=== PATIENT | male | born 1985 | race Two or more races ===

== ENCOUNTER → 2017-08-13 | Outpatient (REF) | payer OTHER ==
[2017-08-13 14:34] LABS: APPEARANCE, URINE HAZY (CLEAR); BACTERIA, URINE AUTO NEGATIVE (NEGATIVE); BILIRUBIN, URINE AUTO NEGATIVE (NEGATIVE); BLOOD, URINE BLOOD NEGATIVE (NEGATIVE); COLOR, URINE YELLOW (YELLOW); GLUCOSE, URINE (UA) AUTO NEGATIVE (NEGATIVE); KETONE, URINE AUTO 1+ mg/dL (NEGATIVE); LEUKOCYTE ESTERASE, URINE AUTO NEGATIVE (NEGATIVE); MUCUS, URINE SMALL (NEGATIVE); NITRITE, URINE AUTO NEGATIVE (NEGATIVE); PROTEIN, URINE AUTO NEGATIVE (NEGATIVE); RBC, URINE AUTO 1 /HPF (0-3); SPECIFIC GRAVITY URINE AUTO 1.028 (1.002-1.035); SQUAMOUS EPITHELIAL CELL UR AU 0 /HPF (0-6); UROBILINOGEN, URINE AUTO 0.2 mg/dL (0.0-2.0); WBC, URINE AUTO 0 /HPF (0-3)
== END ==
LOC: M SMT 13:06
DX: N28.89 Other specified disorders of kidney and ureter (principal)
CPT/HCPCS: 81001

== ENCOUNTER 2017-09-05 05:53 | Inpatient (IN) | payer OTHER ==
[2017-09-05] MEDS: LR 1,000 ML IV ×3 (06:33→12:45)
[2017-09-05] MEDS ORDERED: LIDOCAINE 2% INJ 100 MG/5 ML SDV (FOR ANES.) As Ordered (07:06)
[2017-09-05] MEDS ORDERED: KETOROLAC 60 MG/2 ML VIAL (J1885) As Ordered (07:06)
[2017-09-05] MEDS ORDERED: GLYCOPYRROLATE INJ 0.2 MG/ML 2 ML VIAL As Ordered (07:06)
[2017-09-05] MEDS ORDERED: ONDANSETRON 4MG/2ML VIAL (J2405) As Ordered (07:06)
[2017-09-05] MEDS ORDERED: dexameTHASONE 4 MG/ML 1ML VIAL (J1100) As Ordered (07:06)
[2017-09-05] MEDS ORDERED: PROPOFOL 200 MG/20 ML VIAL As Ordered (07:06)
[2017-09-05] MEDS ORDERED: NEOSTIGMINE 10 MG/10 ML VIAL (J2710) As Ordered (07:06)
[2017-09-05] MEDS ORDERED: ROCURONIUM BROMIDE 50 MG/5 ML VIAL As Ordered (07:06)
[2017-09-05] MEDS ORDERED: MIDAZOLAM INJ 2 MG/2 ML VIAL (J2250) As Ordered (07:08)
[2017-09-05] MEDS ORDERED: HYDROmorphone HCL 2 MG/ML 1ML VIAL (J1170) As Ordered (07:08)
[2017-09-05] MEDS ORDERED: fentaNYL 100 MCG/2 ML INJECTION (J3010) As Ordered ×2 (07:08→12:37)
[2017-09-05] MEDS ORDERED: PERCOCET 5MG/325MG TAB PO (07:30)
[2017-09-05] MEDS: LIDOCAINE 1% SDV INJ 30 ML VIAL As Ordered (08:15)
[2017-09-05] MEDS: BUPIVACAINE HCL 0.25% 30 ML VIAL As Ordered (08:15)
[2017-09-05] MEDS: DOCUSATE SODIUM 100 MG CAP PO ×2 (09:00→20:43)
[2017-09-05] MEDS: MANNITOL 25% 12.5 GM/50 ML VIAL (J2150) As Ordered (10:10)
[2017-09-05] MEDS ORDERED: NORCO, ANEXSIA 5/325MG TABLET (HYDROcodone/ACETAMINOPHEN) As Ordered (12:37)
[2017-09-05] MEDS: fentaNYL 100 MCG/2 ML INJECTION (J3010) IV ×4 (12:40→12:55)
[2017-09-05] MEDS ORDERED: ONDANSETRON 4MG/2ML VIAL (J2405) IV (12:45)
[2017-09-05 12:47] LABS: HEMATOCRIT 41.3 % (42.0-52.0); HEMOGLOBIN 14.2 g/dl (14.0-18.0); MEAN CORPUSCULAR HEMOGLOBIN 30.1 pg (27.0-33.0); MEAN CORPUSCULAR HGB CONC 34.4 g/dl (32.0-36.5); MEAN CORPUSCULAR VOLUME 87.5 fl (80.0-96.0); PLATELET COUNT, AUTOMATED 202 10^3/uL (150-450); RED BLOOD COUNT 4.72 10^6/uL (4.30-6.10); RED CELL DISTRIBUTION WIDTH 11.5 % (11.5-14.5); WHITE BLOOD COUNT 8.8 10^3/uL (4.0-10.0)
[2017-09-05] MEDS: NORCO, ANEXSIA 5/325MG TABLET (HYDROcodone/ACETAMINOPHEN) PO (12:53)
[2017-09-05] MEDS ORDERED: HYDROmorphone HCL 1 MG/ML SYRINGE (J1170) As Ordered (13:10)
[2017-09-05] MEDS: HYDROmorphone HCL 1 MG/ML SYRINGE (J1170) IV ×2 (13:13→13:18)
[2017-09-05 13:27] LABS: ANION GAP 8 MEQ/L (8-16); BLOOD UREA NITROGEN 13 MG/DL (7-18); CALCIUM LEVEL 8.6 MG/DL (8.5-10.1); CARBON DIOXIDE LEVEL 27 MEQ/L (21-32); CHLORIDE LEVEL 105 MEQ/L (98-107); CREATININE FOR GFR 1.16 MG/DL (0.70-1.30); GLOMERULAR FILTRATION RATE > 60.0 (>60); GLUCOSE, FASTING 122 MG/DL (70-100); POTASSIUM SERUM 4.2 MEQ/L (3.5-5.1); SODIUM LEVEL 140 MEQ/L (136-145)
[2017-09-05] MEDS: NS 1,000 ML IV ×3 (13:57→23:26)
[2017-09-05] MEDS: MORPHINE 4 MG/ML 1ML VIAL (J2270) IV ×5 (14:16→23:26)
[2017-09-05] MEDS: METHOCARBAMOL 750 MG TAB PO ×2 (14:47→18:56)
[2017-09-05] MEDS: CEFAZOLIN SOD 1 GM in APPROPRIATE DILUENT 1 EA IV (15:12)
[2017-09-05] MEDS: PERCOCET 5MG/325MG TAB PO (17:11)
[2017-09-05] MEDS: ONDANSETRON 4MG/2ML VIAL (J2405) IV (17:11)
[2017-09-05] MEDS: PREGABALIN 75 MG CAP(LYRICA) PO (21:07)
[2017-09-06] MEDS: CEFAZOLIN SOD 1 GM in APPROPRIATE DILUENT 1 EA IV (00:07)
[2017-09-06] MEDS: NORCO, ANEXSIA 5/325MG TABLET (HYDROcodone/ACETAMINOPHEN) PO ×6 (00:08→22:35)
[2017-09-06] MEDS: METHOCARBAMOL 750 MG TAB PO ×3 (00:56→11:48)
[2017-09-06] MEDS: MORPHINE 4 MG/ML 1ML VIAL (J2270) IV ×3 (01:40→06:07)
[2017-09-06 02:32] LABS: BEDSIDE GLUCOSE 87 MG/DL (70-105)
[2017-09-06] MEDS: LEVOTHYROXINE 125MCG TABLET (0.125MG) PO (06:06)
[2017-09-06 06:56] LABS: MEAN CORPUSCULAR HGB CONC 34.1 g/dl (32.0-36.5); MEAN CORPUSCULAR VOLUME 87.9 fl (80.0-96.0); PLATELET COUNT, AUTOMATED 153 10^3/uL (150-450); RED BLOOD COUNT 3.87 10^6/uL (4.30-6.10); RED CELL DISTRIBUTION WIDTH 11.7 % (11.5-14.5); WHITE BLOOD COUNT 7.4 10^3/uL (4.0-10.0)
[2017-09-06 07:10] LABS: HEMOGLOBIN 11.6 g/dl (14.0-18.0)
[2017-09-06] MEDS: NS 1,000 ML IV ×2 (07:21→20:05)
[2017-09-06 07:25] LABS: ANION GAP 8 MEQ/L (8-16); BLOOD UREA NITROGEN 9 MG/DL (7-18); CALCIUM LEVEL 7.7 MG/DL (8.5-10.1); CARBON DIOXIDE LEVEL 26 MEQ/L (21-32); CHLORIDE LEVEL 104 MEQ/L (98-107); CREATININE FOR GFR 1.29 MG/DL (0.70-1.30); GLOMERULAR FILTRATION RATE > 60.0 (>60); GLUCOSE, FASTING 86 MG/DL (70-100); POTASSIUM SERUM 3.5 MEQ/L (3.5-5.1); SODIUM LEVEL 138 MEQ/L (136-145)
[2017-09-06] MEDS: DOCUSATE SODIUM 100 MG CAP PO ×2 (09:06→20:04)
[2017-09-06] MEDS: PREGABALIN 75 MG CAP(LYRICA) PO ×2 (09:07→20:04)
[2017-09-06] MEDS ORDERED: NORCO, ANEXSIA 5/325MG TABLET (HYDROcodone/ACETAMINOPHEN) PO (10:30)
[2017-09-06 14:17] LABS: HEMATOCRIT 32.7 % (42.0-52.0); HEMOGLOBIN 11.3 g/dl (14.0-18.0); MEAN CORPUSCULAR HEMOGLOBIN 30.4 pg (27.0-33.0); MEAN CORPUSCULAR HGB CONC 34.6 g/dl (32.0-36.5); MEAN CORPUSCULAR VOLUME 87.9 fl (80.0-96.0); PLATELET COUNT, AUTOMATED 138 10^3/uL (150-450); RED BLOOD COUNT 3.72 10^6/uL (4.30-6.10); RED CELL DISTRIBUTION WIDTH 11.8 % (11.5-14.5); WHITE BLOOD COUNT 6.1 10^3/uL (4.0-10.0)
[2017-09-06] MEDS: MIRALAX *UNIT DOSE* 17GM PACKET PO (17:36)
[2017-09-06] MEDS: ONDANSETRON 4MG/2ML VIAL (J2405) IV (18:01)
[2017-09-06] MEDS: ACETAMINOPHEN TAB 650MG DOSE (2X325MG) PO (20:05)
[2017-09-07] MEDS: MORPHINE 4 MG/ML 1ML VIAL (J2270) IV (01:12)
[2017-09-07] MEDS: NORCO, ANEXSIA 5/325MG TABLET (HYDROcodone/ACETAMINOPHEN) PO ×2 (04:14→09:07)
[2017-09-07] MEDS: LEVOTHYROXINE 125MCG TABLET (0.125MG) PO (06:39)
[2017-09-07] MEDS: traMADol 50 MG TAB PO ×2 (06:39→22:25)
[2017-09-07 06:43] LABS: HEMATOCRIT 34.2 % (42.0-52.0); HEMOGLOBIN 11.8 g/dl (14.0-18.0); MEAN CORPUSCULAR HEMOGLOBIN 29.9 pg (27.0-33.0); MEAN CORPUSCULAR HGB CONC 34.5 g/dl (32.0-36.5); MEAN CORPUSCULAR VOLUME 86.6 fl (80.0-96.0); PLATELET COUNT, AUTOMATED 158 10^3/uL (150-450); RED BLOOD COUNT 3.95 10^6/uL (4.30-6.10); RED CELL DISTRIBUTION WIDTH 11.6 % (11.5-14.5); WHITE BLOOD COUNT 7.3 10^3/uL (4.0-10.0)
[2017-09-07 06:56] LABS: ANION GAP 7 MEQ/L (8-16); BLOOD UREA NITROGEN 6 MG/DL (7-18); CARBON DIOXIDE LEVEL 27 MEQ/L (21-32); CHLORIDE LEVEL 104 MEQ/L (98-107); CREATININE FOR GFR 1.04 MG/DL (0.70-1.30); GLOMERULAR FILTRATION RATE > 60.0 (>60); GLUCOSE, FASTING 111 MG/DL (70-100); POTASSIUM SERUM 3.9 MEQ/L (3.5-5.1); SODIUM LEVEL 138 MEQ/L (136-145)
[2017-09-07] MEDS: PREGABALIN 75 MG CAP(LYRICA) PO ×2 (09:00→20:11)
[2017-09-07] MEDS: DOCUSATE SODIUM 100 MG CAP PO ×2 (09:00→20:11)
[2017-09-07] MEDS: ONDANSETRON 4MG/2ML VIAL (J2405) IV (09:07)
[2017-09-07] MEDS: MIRALAX *UNIT DOSE* 17GM PACKET PO (09:07)
[2017-09-07] MEDS: NS 1,000 ML IV (10:57)
[2017-09-07] MEDS: ACETAMINOPHEN TAB 650MG DOSE (2X325MG) PO (18:12)
[2017-09-07] MEDS: ZOLMitriptan TABLET 2.5MG PO (20:12)
[2017-09-08] MEDS: traMADol 50 MG TAB PO ×3 (02:18→10:21)
[2017-09-08] MEDS: NS 1,000 ML IV (05:54)
[2017-09-08] MEDS: LEVOTHYROXINE 125MCG TABLET (0.125MG) PO (06:06)
[2017-09-08 06:30] LABS: HEMATOCRIT 34.6 % (42.0-52.0); MEAN CORPUSCULAR HEMOGLOBIN 29.6 pg (27.0-33.0); MEAN CORPUSCULAR HGB CONC 34.7 g/dl (32.0-36.5); MEAN CORPUSCULAR VOLUME 85.4 fl (80.0-96.0); PLATELET COUNT, AUTOMATED 161 10^3/uL (150-450); RED BLOOD COUNT 4.05 10^6/uL (4.30-6.10); RED CELL DISTRIBUTION WIDTH 11.4 % (11.5-14.5); WHITE BLOOD COUNT 6.4 10^3/uL (4.0-10.0)
[2017-09-08 07:00] LABS: ANION GAP 6 MEQ/L (8-16); BLOOD UREA NITROGEN 6 MG/DL (7-18); CALCIUM LEVEL 8.6 MG/DL (8.5-10.1); CARBON DIOXIDE LEVEL 31 MEQ/L (21-32); CHLORIDE LEVEL 103 MEQ/L (98-107); CREATININE FOR GFR 1.05 MG/DL (0.70-1.30); GLOMERULAR FILTRATION RATE > 60.0 (>60); GLUCOSE, FASTING 116 MG/DL (70-100); POTASSIUM SERUM 3.6 MEQ/L (3.5-5.1); SODIUM LEVEL 140 MEQ/L (136-145)
[2017-09-08] MEDS: PREGABALIN 75 MG CAP(LYRICA) PO (09:31)
[2017-09-08] MEDS: BISACODYL 10 MG SUPP PR (09:31)
[2017-09-08] MEDS: DOCUSATE SODIUM 100 MG CAP PO (09:32)
== END 2017-09-08 12:43 | disposition home or self-care (01) | DRG 657 ==
LOC: M OR 05:53 → M MSPAV 14:03
PROC: 0TB04ZZ Excision of Right Kidney, Percutaneous Endoscopic Approach (ICD-10-PCS; principal; 2017-09-05 07:30)
PROC: 8E0W4CZ Robotic Assisted Procedure of Trunk Region, Percutaneous Endoscopic Approach (ICD-10-PCS; 2017-09-05 07:30)
DX: D30.01 Benign neoplasm of right kidney (principal); K91.89 Other postprocedural complications and disorders of digestive system; K56.7 Ileus, unspecified; E03.9 Hypothyroidism, unspecified; G43.909 Migraine, unspecified, not intractable, without status migrainosus; Z79.899 Other long term (current) drug therapy

== ENCOUNTER 2019-07-24 19:35 | Emergency (ER) | payer OTHER ==
[~2019-07-24] VITALS: Ht 188 cm; Wt 86.4 kg
[~2019-07-24 19:35] MED LIST: ACET1TAB55 PO; LEVO125T4 PO; LYRI75CA PO; MIRA3350 PO; MM S100C PO; PRED10TA2 PO; ROBA750T4 PO; TIZA2CAP PO; ULTR50TA8 PO; VOLT1GEL15 TD; VOLTAREN PO; ZOMI5TAB12 PO
[2019-07-24] MEDS ORDERED: PREG50CA2 PO (19:42)
[2019-07-24] MEDS ORDERED: LIDOCAINE 4% CREAM 5GM (LMX4) TOP ONE (20:15)
[2019-07-24] MEDS ORDERED: BACI500O21 TOP (20:53)
[2019-07-24] MEDS ORDERED: TRAM50TA2 PO (20:53)
[2019-07-24 20:58] VITALS: BP 128/80
[2019-07-24] MEDS ORDERED: traMADol 50 MG TAB PO ONE (21:00)
== END 2019-07-24 21:11 | disposition home or self-care (01) ==
LOC: M ED 19:35
DX: T23.202A Burn of second degree of left hand, unspecified site, initial encounter (principal); T31.0 Burns involving less than 10% of body surface; X15.3XXA Contact with hot saucepan or skillet, initial encounter; Y92.099 Unspecified place in other non-institutional residence as the place of occurrence of the external cause; Y93.9 Activity, unspecified; Y99.9 Unspecified external cause status; E06.3 Autoimmune thyroiditis; G43.909 Migraine, unspecified, not intractable, without status migrainosus; Z79.899 Other long term (current) drug therapy; J30.89 Other allergic rhinitis; Z91.89 Other specified personal risk factors, not elsewhere classified; Z88.8 Allergy status to other drugs, medicaments and biological substances